=== PATIENT | female | born 1985 | race Caucasian/White ===

== ENCOUNTER 2022-03-05 10:54 | Emergency (ER) | payer MEDICAID ==
[2022-03-05 11:10] VITALS: O2SAT 100
[2022-03-05] MEDS ORDERED: TORAdol 30 mg Injection IM ONE (11:33)
[2022-03-05] MEDS ORDERED: DECADRON 10MG INJ. IM ONE (11:33)
[2022-03-05] MEDS ORDERED: DECADRON 10MG INJ. ONE (11:36)
[2022-03-05] MEDS ORDERED: TORAdol 30 mg Injection ONE (11:36)
--- NOTE | 2022-03-05 11:56 | XRAY ---
Exam: 3 view lumbar spine radiographs from 03/05/2022. Comparison: [None.] Indication: 37-year-old female with low back pain; no known injury. Findings: AP and lateral images of the lumbar spine, and a lateral image of the lumbosacral junction were obtained. There are 5 [id number] lumbar-type vertebra. No acute fracture, AP subluxation, or other focal bone lesion is seen. The pedicles appear intact. The lumbar interspaces appear well-maintained. The neural foramen appear unremarkable on the lateral images. The sacroiliac joints appear unremarkable and symmetric. Surgical clips are seen overlying the right upper quadrant consistent with prior cholecystectomy. The visualized bowel gas pattern appears unremarkable. Impression: 1. No significant plain film lumbar spine abnormality is seen.
[2022-03-05 12:10] VITALS: BP 104/61
--- NOTE | 2022-03-05 12:24 | ERPHSYRPT ---
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 Patient rates her pain 10 out of 10. Patient has radiation of pain down to her buttock area. No trauma. No fever. No change in bowel bladder function. No recent back procedures. Symptoms are mild to moderate in intensity. Movement reproduces symptoms. Pain improved with rest. Patient denies urinary symptomology. Patient denies the possibility of . Patient states is otherwise healthy. She voices no other complaints or concerns at this time. Timing/Duration: today Method of Injury: bending Quality: dull Back Pain Location: lumbar spine Back Pain Radiation: buttocks Severity of Pain-Max: moderate Severity of Pain-Current: mild Modifying Factors: Improves With: movement Associated Symptoms: denies symptoms, No fever, No chills, No sweating, No urinary incontinence, No nausea, No vomiting, No weakness, No sensory/motor loss, No tingling in legs/feet, No muscle spasms Previous symptoms: no prior history Allergies/Adverse Reactions: No Known Drug Allergies Allergy (Verified 03/05/22 11:10) Travel Risk - International Travel Have you traveled outside of the country in past 3 weeks: No - Coronavirus Screening Are you exhibiting any of the following symptoms?: No Close contact with a COVID-19 positive Pt in past 14-21 Days: No - Vaccine Status Have you recieved a Covid-19 vaccination: No - Review of Systems Constitutional: No Symptoms, No Fever, No Chills Eyes: No Symptoms Ears, Nose, & Throat: No Symptoms Respiratory: No Symptoms, No Cough, No Dyspnea Cardiac: No Symptoms, No Chest Pain, No Edema, No Syncope Abdominal/Gastrointestinal: No Symptoms, No Abdominal Pain, No Nausea, No Vomiting, No Diarrhea Genitourinary Symptoms: No Symptoms, No Dysuria Musculoskeletal: No Symptoms, No Back Pain, No Neck Pain Skin: No Symptoms, No Rash Neurological: No Symptoms, No Dizziness, No Focal Weakness, No Sensory Changes Psychological: No Symptoms Endocrine: No Symptoms Hematologic/Lymphatic: No Symptoms Immunological/Allergic: No Symptoms All Other Systems: Reviewed and Negative - Past Medical History Pertinent Past Medical History: Yes Endocrine Medical History: Hypothyroidism Other Medical History: cysts on ovaries - Past Surgical History Past Surgical History: Yes Gastrointestinal: Cholecystectomy Female Surgical History: Section, Tubal Ligation - Social History Smoking Status: Current every day smoker Exposure to second hand smoke: Yes Drug Use: none Patient Lives Alone: No - Female History Hx Last Menstrual Period: 03/01/2022 Hx Now: No (tubal) - Nursing Vital Signs Nursing Vital Signs: Initial Vital Signs Temperature 97.4 F 03/05/22 10:58 Pulse Rate 63 03/05/22 10:58 Blood Pressure 114/60 03/05/22 10:58 O2 Sat by Pulse Oximetry 100 03/05/22 10:58 Pain Scale Pain Intensity [] 10 Pain Intensity 0 - Physical Exam General Appearance: no apparent distress, alert Eye Exam: PERRL/EOMI, eyes nml inspection Ears, Nose, Throat Exam: normal ENT inspection, TMs normal, pharynx normal Neck Exam: normal inspection, non-tender, supple, full range of motion, No meningismus, No midline tenderness Respiratory Exam: normal breath sounds, lungs clear, airway intact, No respiratory distress Cardiovascular Exam: regular rate/rhythm, normal heart sounds Gastrointestinal Exam: soft, No tenderness, No mass Pelvic Exam: not done Rectal Exam: deferred Extremity Exam: normal inspection, normal range of motion, No calf tenderness, No pedal edema Peripheral Pulses: dorsalis-pedis (R): 2+, dorsalis-pedis (L): 2+ Neurologic Exam: alert, oriented x 3, cooperative, 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 nml as tested, normal mood/affect, nml station & gait, sensation nml, No motor deficits Skin Exam: normal color, warm, dry, No rash Lymphatic Exam: No adenopathy SpO2 Interpretation: normal SpO2: 100 O2 Delivery: Room Air - Course Nursing assessment & vital signs reviewed: Yes - Radiology Exams L-Spine X-ray Interpretation: Teleradiologist Report (No acute pathology observe the back x-ray.) Ordered Tests: Active Orders 24 hr Category Date Time Status LUMBAR LIMITED (2 OR 3 VIEWS) Stat Exams 03/05/22 00:00 Completed CULTURE,URINE Stat Lab 03/05/22 11:52 Received UA W/RFX CULTURE Stat Lab 03/05/22 11:52 Completed Medication Summary Discontinued Medications Generic Name Dose Route Start Last Admin Trade Name Marleny PRN Reason Stop Dose Admin Dexamethasone Sodium Phosphate 6 mg 03/05/22 11:33 03/05/22 11:39 Dexamethasone Sod Phosphate 10 Mg/Ml IM 03/05/22 11:34 6 mg STAT ONE Administration Dexamethasone Sodium Phosphate Confirm 03/05/22 11:36 Dexamethasone Sod Phosphate 10 Mg/Ml Administered 03/05/22 11:37 Dose 10 mg .ROUTE .STK-MED ONE Ketorolac Tromethamine 30 mg 03/05/22 11:33 03/05/22 11:39 Ketorolac Tromethamine 30 Mg/Ml Inj IM 03/05/22 11:34 30 mg STAT ONE Administration Ketorolac Tromethamine Confirm 03/05/22 11:36 Ketorolac Tromethamine 30 Mg/Ml Inj Administered 03/05/22 11:37 Dose 30 mg .ROUTE .STK-MED ONE Lab/Rad Data: Laboratory Results 03/05/22 Range/Units 11:52 Urinalys Dipstick Clnc MAIN LAB Urine Color ORANGE (YELLOW) Urine Appearance CLEAR (CLEAR) Urine pH 6.5 (5-6) Ur Specific [place] 1.015 (1.005-1.025) POC Urine Protein Conf TRACE (Negative) Urine Ketones NEGATIVE (NEGATIVE) Urine Nitrite POSITIVE (NEGATIVE) Urine Bilirubin NEGATIVE (NEGATIVE) Urine Urobilinogen 1 (0-1) mg/dL Urine Leukocytes NEGATIVE (NEGATIVE) Urine WBC (Auto) 3-5 (0-5) /HPF Urine RBC (Auto) 0-2 (0-2) /HPF U Epithel Cells (Auto) NONE (FEW) /HPF Urine Bacteria (Auto) MANY (NEGATIVE) /HPF Urine RBC SMALL (0-5) Goldy/ul Ur Culture Indicated? YES Urine Glucose 100 (NEGATIVE) mg/dL - Progress Progress: improved Progress Note: Patient reassessed. Back pain resolved. Patient feels well. Patient requesting discharge. UTI observed on UA. A prescription for Macrobid was forwarded to patient's pharmacy. Glucosuria of 100. Accu-Chek is 85. Patient does not have a primary care doctor. Patient referred to on-call doctor for follow-up. Patient requesting a work note. RN provided patient with a work note. Grandmother bedside. They voiced no other complaints or concerns at this time. Portions of this note were created with voice recognition technology. There may be grammatical, spelling, punctuation or sound alike errors 03/05/22 12:50 Counseled pt/family regarding: lab results, diagnosis, need for follow-up, rad results - Departure Departure Disposition: Home Clinical Impression: Lumbosacral strain, UTI (urinary tract infection) Condition: Stable Critical Care Time: No Referrals: DOCTOR,NO FAMILY [Primary Care Provider] - Follow up/PCP as directed DARLENE OGLESBY MD [ACTIVE STAFF] - Follow up/PCP as directed Additional Instructions: Discharge/Care Plan JOHNSON,FRANKLIN ROWE was seen on 03/05/22 in the Emergency Room. The patient was counseled regarding Diagnosis,Lab results, Imaging studies, need for follow up and when to return to the Emergency Room. Prescriptions given: Discharge Note I have spoken with the patient and/or caregivers. I have explained the patient's condition, diagnosis and treatment plan based on the information available to me at this time. I have answered the patient's and/or caregiver's questions and addressed any concerns. The patient and/or caregivers have as good understanding of the patient's diagnosis, condition and treatment plan as can be expected at this point. The vital signs have been stable. The patient's condition is stable and appropriate for discharge from the emergency department. The patient will pursue further outpatient evaluation with the primary care physician or other designated or consulting physician as outlined in the discharge instructions. The patient and/or caregivers are agreeable to this plan of care and follow-up instructions have been explained in detail. The patient and/or caregivers have received these instruction. The patient/and or caregivers are aware that any significant change in condition or worsening of symptoms should prompt an immediate return to this or the closest emergency department or call 911. Prescriptions: Nitrofurantoin Macro 100 mg [Macrobid 100MG Capsule] 100 mg PO BID 7 Days #14 cap
[2022-03-05 12:39] LABS: Bacteria MANY /HPF (NEGATIVE); RBC 0-2 /HPF (0-2)
[2022-03-05 12:40] LABS: Appearance CLEAR (CLEAR); Bilirubin NEGATIVE (NEGATIVE); Glucose 100 mg/dL (NEGATIVE); Ketones NEGATIVE (NEGATIVE); RBC SMALL Ery/ul (0-5); Specific Gravity 1.015 (1.005-1.025)
[2022-03-05 12:41] LABS: Nitrite POSITIVE (NEGATIVE); Ph 6.5 (5-6); Protein,Urine Dip TRACE (Negative); Urine Cultured Indicated? YES; Urobilinogen 1 mg/dL (0-1)
[2022-03-05 12:42] LABS: Dipstick done @ ? MAIN LAB
[2022-03-05 12:51] VITALS: PULSE 61
== END 2022-03-05 13:00 | disposition home or self-care (01) ==
LOC: ED 10:54
DX: N39.0 Urinary tract infection, site not specified (principal); S39.012A Strain of muscle, fascia and tendon of lower back, initial encounter; X50.3XXA Overexertion from repetitive movements, initial encounter; Y92.511 Restaurant or cafe as the place of occurrence of the external cause; Y99.0 Civilian activity done for income or pay; Z72.0 Tobacco use
CPT/HCPCS: 72100; 81015; 82947; 87077; 87086; 87186; 96372; 99284; J1100; J1885

== ENCOUNTER 2023-10-27 14:25 | Emergency (ER) | payer SELFPAY ==
[2023-10-27 15:33] VITALS: TEMP 99.4; O2SAT 100
[2023-10-27 16:26] LABS: Group A Strep NOT DETECTED (NEGATIVE)
[2023-10-27 16:37] LABS: INFLUENZA A NEGATIVE (NEGATIVE); RESPIRATORY SYNCTIAL VIRUS NEGATIVE (NEGATIVE); SARS-CoV-2 Xpert Express NEGATIVE (NEGATIVE)
[2023-10-27 16:38] LABS: INFLUENZA B POSITIVE (NEGATIVE)
--- NOTE | 2023-10-27 16:45 | ERPHSYRPT ---
- History of Present Illness Time Seen by Provider: 10/27/23 16:35 Source: patient Exam Limitations: no limitations Patient Subjective Stated Complaint: Pt c/o of headache, congestion, cough, fever, hands went numb earlier Triage Nursing Assessment: Pt was brought to the ER by her cousin, hypotensive, rates head pain as 3/10, low grade fever, congestion, cough, nauseous, denies vomiting, diarrhea, had severe abdominal pain today while having a bowel movement and she believes it may have been an ovarian cyst rupturing Physician History: For the past 10 days pt has had an intermittent frontal headache, chills, diaph oresis, fever up to 102 degrees and cough productive of white phlegm. Allergies/Adverse Reactions: codeine Adverse Reaction (Verified 10/27/23 15:33) Home Medications: No Reportable Medications [No Reported Medications] 10/27/23 [History] Hx Influenza Vaccination/Date Given: No Hx Pneumococcal Vaccination/Date Given: No Travel Risk - International Travel Have you traveled outside of the country in past 3 weeks: No - Coronavirus Screening Are you exhibiting any of the following symptoms?: Yes Symptoms: Fever, Cough: New Onset, Vomiting/Diarrhea, Headaches/Body Aches/Fatigue Close contact with a COVID-19 positive Pt in past 14-21 Days: No - Vaccine Status Have you recieved a Covid-19 vaccination: No - Review of Systems Constitutional: Fever, Chills Respiratory: Cough Cardiac: No Chest Pain Abdominal/Gastrointestinal: No Vomiting, No Diarrhea Neurological: Headache (frontal) - Past Medical History Pertinent Past Medical History: Yes Endocrine Medical History: Hypothyroidism Other Medical History: cysts on ovaries, anemic - Past Surgical History Past Surgical History: Yes Gastrointestinal: Cholecystectomy Female Surgical History: Section, Tubal Ligation - Social History Smoking Status: Current every day smoker Exposure to second hand smoke: Yes Drug Use: none Patient Lives Alone: No - Female History Hx Now: No (tubal) - Nursing Vital Signs Nursing Vital Signs: Initial Vital Signs Temperature 99.4 F 10/27/23 15:22 Pulse Rate 90 10/27/23 15:22 Blood Pressure 98/57 10/27/23 15:22 O2 Sat by Pulse Oximetry 100 10/27/23 15:22 Pain Scale Pain Intensity 4 - Physical Exam General Appearance: alert Eye Exam: PERRL/EOMI Ears, Nose, Throat Exam: TMs normal, moist mucous membranes, pharyngeal erythema Neck Exam: normal inspection Respiratory Exam: wheezing (coarse wheezing over posterior bases) Cardiovascular Exam: normal heart sounds Gastrointestinal/Abdomen Exam: normal bowel sounds Back Exam: normal inspection Extremity Exam: No pedal edema Neurologic Exam: alert, cooperative Skin Exam: warm, dry SpO2 Interpretation: normal SpO2: 100 O2 Delivery: Room Air - Course Nursing assessment & vital signs reviewed: Yes - Radiology Exams Chest X-ray Interpretation: Interpreted by me, No Pneumonia Ordered Tests: Active Orders 24 hr Category Date Time Status CHEST 2 VIEWS (PA AND LAT) Stat Exams 10/27/23 16:46 Taken Lab/Rad Data: Laboratory Results 10/27/23 Range/Units 15:54 Influenza Type A Ag NEGATIVE (NEGATIVE) Influenza Type B Ag POSITIVE (NEGATIVE) RSV (PCR) NEGATIVE (NEGATIVE) SARS-CoV-2 (PCR) NEGATIVE (NEGATIVE) Group A Strep Antibody NOT DETECTED (NEGATIVE) - Progress Progress: unchanged Counseled pt/family regarding: lab results, diagnosis, rad results Medical Desision Making - Diagnostic Testing Diagnostic test were ordered, analyzed, and reviewed by me: Yes Radiological Interpretation: Interpreted by me - Departure Departure Disposition: Home Clinical Impression: Influenza B Condition: Stable Critical Care Time: No Referrals: DOCTOR,NO FAMILY [Primary Care Provider] - Follow up/PCP as directed Instructions: Fever, Adult (DC), Flu, Adult ED Additional Instructions: Follow up with private doctor tomorrow.
[2023-10-27] MEDS ORDERED: Zithromax 250 MG TABLET ONE (17:34)
[2023-10-27] MEDS: Zithromax 250 MG TABLET PO ONE (17:35)
[2023-10-27] MEDS ORDERED: PROVENTIL 2.5 MG/3 ML NEB IH ONE (17:37)
[2023-10-27] MEDS: PROVENTIL 2.5 MG/3 ML NEB IH ONE (17:39)
[2023-10-27 17:44] VITALS: PULSE 68; RESP 18
[2023-10-27 17:52] VITALS: BP 108/52
--- NOTE | 2023-10-27 18:56 | XRAY ---
Indication: Cough and short of breath. Comparison: None PA/lateral chest hyperinflated and clear. Heart and mediastinal structures within normal limits. Bony thorax intact. Impression: Nonacute hyperinflated chest.
== END 2023-10-27 17:52 | disposition home or self-care (01) ==
LOC: ED 14:25
DX: J10.1 Influenza due to other identified influenza virus with other respiratory manifestations (principal); J40 Bronchitis, not specified as acute or chronic; R51.9 Headache, unspecified; R50.9 Fever, unspecified; R05.1 Acute cough; Z28.310 Unvaccinated for COVID-19; Z72.0 Tobacco use
CPT/HCPCS: 0241U; 71046; 87651; 94640; 99283; J7609; A9270-GY